=== PATIENT | male | born 1940 | race Hispanic/Latino ===

== ENCOUNTER 2018-09-13 18:53 | Observation (INO) | payer OTHER ==
--- OUTSIDE RECORDS SUMMARY | 2018-09-13 18:55 | XMS REPORT ---
:1940 [facility] Address [address] [place] [address] Dr. Hernandez. [address] [place] [id number] Care Team Providers Name Role Phone Unavailable Unavailable Unavailable Problems This patient has no known problems. Allergies, Adverse Reactions, Alerts This patient has no known allergies or adverse reactions. Medications This patient has no known medications.
--- OUTSIDE RECORDS SUMMARY | 2018-09-13 18:55 | XMS REPORT | Continuity of Care Document ---
:1940 Author Organization Interface Problems Problem Status Onset Date Classification Date Comments Source Reported Medications Medication Details Route Status Patient Ordering Order Source Instructions Provider Date Allergies, Adverse Reactions, Alerts Substance Category Reaction Severity Reaction Status Date Comments Source type Reported Immunizations Immunization Date Given Site Status Last Updated Comments Source Results Order Results Value Reference Date Interpretation Comments Source Name Range Vital Signs Vital Sign Value Date Comments Source Encounters Location Location Encounter Encounter Reason Attending ADM DC Status Source Details Type Number For Provider Date Date Visit Outpatient [id number] [id number] 05/31 Active [facility] KRE Noel Outpatient [id number] ANYA 06/07 Active [facility] Stanley Outpatient [id number] [id number] 06/28 Active [facility] Noel Outpatient [id number] ANYA 07/06 Active [facility] Noel Outpatient [id number] ANYA 08/03 Active [facility] Outpatient [id number] ANYA 11/30 Active [facility] Procedures Procedure Code Date Perfomer Comments Source
[2018-09-13 20:47] LABS: Absolute Lymphocytes (CBC) 1.9 K/uL (0.7-4.9); Absolute Monocytes 1.5 K/uL (0.1-1.3); Absolute Neutrophil 14.8 K/uL (1.8-8.0); Basophils % 0.3 % (0-1.3); Eosinophils % 0.4 % (0-4.4); Hematocrit 39.4 % (39.6-49.0); Lymphocytes % 10.6 % (15.3-44.8); MPV 7.9 fL (7.6-11.3); RBC Red Blood Cell Count 4.28 M/uL (4.33-5.43)
[2018-09-13 20:52] LABS: Protime INR 1.13
[2018-09-13 21:29] LABS: Albumin 3.2 g/dL (3.4-5.0); Bilirubin Direct 0.1 mg/dL (0-0.2); Bilirubin Total 0.4 mg/dL (0.2-1.0); Magnesium 2.3 mg/dL (1.8-2.4); Protein, Total 6.4 g/dL (6.4-8.2); Troponin (Emerg Dept Use Only) 0.02 ng/mL (0.0-0.045)
[2018-09-13 21:30] LABS: Thyroid Stimulating Hormone 4.69 uIU/mL (0.360-3.740)
--- NOTE | 2018-09-13 22:06 | RAD REPORT ---
EXAM DESCRIPTION: RAD - Chest Single View - 09/13/2018 9:11 pm CLINICAL HISTORY: Cough, shortness of breath COMPARISON: January 2017 TECHNIQUE: AP portable chest image was obtained 8 hours . FINDINGS: Prominent COPD changes are present. No large consolidations seen. Right lung base markings are slightly increased over comparison. Significant failure or volume overload are not suspected. He art and vasculature are normal. No measurable pleural effusion and no pneumothorax. No acute bony abn ormality seen. No acute aortic findings suspected. IMPRESSION: Suspected early right lung base pneumonia superimposed on advanced COPD.
[2018-09-13] MEDS ORDERED: Levofloxacin500mg IV 500 MG/100 ML BAG IV ONE (23:14)
--- NOTE | 2018-09-13 23:14 | EDPHYS ---
Physician Documentation [facility] Name: Jeancarlos Stiles Age: 78 yrs Sex: Male : 1940 Arrival Date: 09/13/2018 Time: 19:00 Bed 7 Private MD: ED Physician Lee Lawrence HPI: 09/13 20:12 This 78 yrs old Male presents to ER via EMS with complaints of ams, combative ric on arrival to [place]. 20:12 hx of behavioral disturbance. Onset: The symptoms/episode began/occurred just prior to ric arrival. Possible causes: unknown. Associated signs and symptoms: The patient has no apparent associated signs or symptoms. Patient's baseline: Neuro: alert but confused. Severity of symptoms: At their worst the symptoms were mild in the emergency department the symptoms have improved mildly. Historical: - Allergies: 19:27 No Known Allergies; bp - Home Meds: 19:27 albuterol sulfate 2.5 mg /3 mL (0.083 %) Nebulizer nebu 3 mL 4 times per day [Active]; bp citalopram 20 mg tab 1 tab once daily [Active]; levothyroxine 50 mcg tab 1 tab once daily [Active]; losartan 50 mg oral tab 1 tab once daily [Active]; memantine 5 mg oral tab 1 tabs 2 times per day [Active]; prednisone 10 mg Oral tab once daily [Active]; trazodone 50 mg Oral tab 1 tab daily [Active]; - PMHx: 19:27 Dementia; Hypothyroidism; Anxiety; Emphysema; bp - Immunization history:: Adult Immunizations up to date. - Social history:: Smoking status: Patient/guardian denies using tobacco. - Ebola Screening: : Patient negative for fever greater than or equal to 101.5 degrees Fahrenheit, and additional compatible Ebola Virus Disease symptoms Patient denies exposure to infectious person Patient denies travel to an Ebola-affected area in the 21 days before illness onset No symptoms or risks identified at this time. - Family history:: not pertinent. ROS: 20:12 Constitutional: Negative for fever, chills, and weight loss, Eyes: Negative for injury, ric pain, redness, and discharge, ENT: Negative for injury, pain, and discharge, Neck: Negative for injury, pain, and swelling, Cardiovascular: Negative for chest pain, palpitations, and edema, Respiratory: Negative for shortness of breath, cough, wheezing, and pleuritic chest pain, Abdomen/GI: Negative for abdominal pain, nausea, vomiting, diarrhea, and constipation, Back: Negative for injury and pain, : Negative for injury, bleeding, discharge, and swelling, MS/Extremity: Negative for injury and deformity, Skin: Negative for injury, rash, and discoloration, Allergy/Immunology: Negative for hives, rash, and allergies, Endocrine: Negative for neck swelling, polydipsia, polyuria, polyphagia, and marked weight changes. 20:12 Neuro: Positive for altered mental status. 20:12 Psych: Positive for not talking, does not answer questions. Exam: 20:12 Constitutional: This is a well developed, well nourished patient who is awake, alert, ric and in no acute distress. Head/Face: Normocephalic, atraumatic. Eyes: Pupils equal round and reactive to light, extra-ocular motions intact. Lids and lashes normal. Conjunctiva and sclera are non-icteric and not injected. Cornea within normal limits. Periorbital areas with no swelling, redness, or edema. ENT: Nares patent. No nasal discharge, no septal abnormalities noted. Tympanic membranes are normal and external auditory canals are clear. Oropharynx with no redness, swelling, or masses, exudates, or evidence of obstruction, uvula midline. Mucous membranes moist. Neck: Trachea midline, no thyromegaly or masses palpated, and no cervical lymphadenopathy. Supple, full range of motion without nuchal rigidity, or vertebral point tenderness. No Meningismus. Chest/axilla: Normal chest wall appearance and motion. Nontender with no deformity. No lesions are appreciated. Cardiovascular: Regular rate and rhythm with a normal S1 and S2. No gallops, murmurs, or rubs. Normal PMI, no JVD. No pulse deficits. Respiratory: Lungs have equal breath sounds bilaterally, clear to auscultation and percussion. No rales, rhonchi or wheezes noted. No increased work of breathing, no retractions or nasal flaring. Abdomen/GI: Soft, non-tender, with normal bowel sounds. No distension or tympany. No guarding or rebound. No evidence of tenderness throughout. Back: No spinal tenderness. No costovertebral tenderness. Full range of motion. Male : Normal genitalia with no discharge or lesions. Skin: Warm, dry with normal turgor. Normal color with no rashes, no lesions, and no evidence of cellulitis. MS/ Extremity: Pulses equal, no cyanosis. Neurovascular intact. Full, normal range of motion. 20:12 Neuro: Orientation: unable to test, Mentation: no acute changes, Memory: unable to test, Cranial nerves: no acute changes, Cerebellar function: unable to test, Gait: not tested. seizure activity, is not displayed by the patient. Vital Signs: 19:27 BP 127 / 68; Pulse 85; Resp 18; Temp 98; Pulse Ox 100% ; Weight 54.43 kg; bp 20:50 BP 134 / 63; Pulse 85; Resp 18; Pulse Ox 100% ; tl2 22:16 BP 152 / 82; Pulse 82; Resp 18; Pulse Ox 99% on 2 lpm NC; tl2 09/14 00:37 BP 137 / 82; Pulse 91; Resp 20; Pulse Ox 92% on 2 lpm NC; tl2 01:30 BP 135 / 94; Pulse 88; Resp 20; Pulse Ox 99% on 2 lpm NC; tl2 MDM: 09/13 19:26 Patient medically screened. [facility] 20:16 Data reviewed: vital signs, nurses notes, lab test result(s), EKG, radiologic studies, ric plain films. 09/13 20:10 Order name: Basic Metabolic Panel; Complete Time: 22:44 [facility] 09/13 20:10 Order name: CBC with Diff; Complete Time: 22:44 [facility] 09/13 20:10 Order name: LFT's; Complete Time: 22:44 [facility] 09/13 20:10 Order name: Magnesium; Complete Time: 22:44 [facility] 09/13 20:10 Order name: NT PRO-BNP; Complete Time: 22:44 [facility] 09/13 20:10 Order name: PT-INR; Complete Time: 22:44 [facility] 09/13 20:10 Order name: Troponin (emerg Dept Use Only); Complete Time: 22:44 [facility] 09/13 20:10 Order name: TSH; Complete Time: 22:44 [facility] 09/13 21:31 Order name: T4 Free; Complete Time: 22:44 EDMS 09/13 22:45 Order name: Blood Culture Adult (2) [facility] 09/13 22:45 Order name: Procalcitonin [facility] 09/13 23:43 Order name: CBC with Automated Diff EDME 09/13 23:43 Order name: CBC with Automated Diff EDMS 09/13 23:43 Order name: Comprehensive Metabolic Panel [facility] 09/13 20:10 Order name: XRAY Chest (1 view); Complete Time: 22:44 [facility] 09/13 20:10 Order name: EKG; Complete Time: 20:11 [facility] 09/13 20:10 Order name: Cardiac monitoring; Complete Time: 20:34 [facility] 09/13 23:42 Order name: Heart Healthy EDMS 09/13 23:43 Order name: Comprehensive Metabolic Panel EDMS 09/13 23:43 Order name: Lipid Profile EDMS 09/13 23:43 Order name: Lipid Profile EDMS 09/13 23:43 Order name: Magnesium EDMS 09/13 23:43 Order name: Magnesium EDMS 09/13 23:43 Order name: Phosphorus EDMS 09/13 23:43 Order name: Phosphorus EDMS 09/13 20:10 Order name: EKG - Nurse/Tech; Complete Time: 20:34 [facility] 09/13 20:10 Order name: IV Saline Lock; Complete Time: 20:34 [facility] 09/13 20:10 Order name: Labs collected and sent; Complete Time: 20:34 [facility] 09/13 20:10 Order name: O2 Per Protocol; Complete Time: 20:35 [facility] 09/13 20:10 Order name: O2 Sat Monitoring; Complete Time: 20:35 [facility] 09/13 20:10 Order name: Urine Dipstick-Ancillary (obtain specimen); Complete Time: 01:36 [facility] Administered Medications: 23:28 Drug: traZODONE 50 mg Route: PO; tl2 09/14 01:07 Follow up: Response: No adverse reaction; Marked relief of symptoms tl2 09/13 23:28 Drug: Ativan 1 mg Route: IVP; Site: left wrist; tl2 09/14 01:07 Follow up: Response: No adverse reaction; Marked relief of symptoms tl2 02 23:45 Drug: Geodon 20 mg Route: IM; Site: right deltoid; tl2 09/14 01:09 Follow up: Response: No adverse reaction; Marked relief of symptoms tl2 00:03 Drug: levofloxacin 500 mg Volume: 100 ml; Route: IVPB; Infused Over: 60 mins; Site: tl2 left wrist; 01:07 Follow up: IV Status: Completed infusion; IV Intake: 100ml tl2 01:08 Drug: Zosyn 3.375 grams Route: IVPB; Infused Over: 60 mins; Site: left wrist; tl2 07:01 Follow up: Response: No adverse reaction; IV Status: Completed infusion ea Disposition: 09/13/18 23:13 Hospitalization ordered by Arcelia Kirk for Inpatient Admission. Preliminary diagnosis are Pneumonia due to other specified bacteria - rll, Elevated white blood cell count, Chronic obstructive pulmonary disease, unspecified, Dementia in other diseases classified elsewhere. - Bed requested for Telemetry/MedSurg (Inpatient). - Status is Inpatient Admission. sv - Condition is Fair. - Problem is new. - Symptoms have improved. UTI on Admission? No Signatures: Dispatcher [employer] EDNaomi Cerna RN Nallely Merino RN RN sv Anderson, Corey, MD MD cha Chretien, Felicia, RN RN fc Solis, Maria ms Knox, Taylor, RN RN [facility] Efren Allen RN RN bp Antunez, Elena RN ea Corrections: (The following items were deleted from the chart) 00:47 09/13 23:13 Hospitalization Ordered by Arcelia Kirk MD for Inpatient Admission. fc Preliminary diagnosis is Pneumonia due to other specified bacteria - rll; Elevated white blood cell count; Chronic obstructive pulmonary disease, unspecified; Dementia in other diseases classified elsewhere. Bed requested for Telemetry/MedSurg (Inpatient). Status is Inpatient Admission. Condition is Fair. Problem is new. Symptoms have improved. UTI on Admission? No. ric 09/14 01:32 00:47 09/13/2018 23:13 Hospitalization Ordered by Arcelia Kirk MD for Inpatient ms Admission. Preliminary diagnosis is Pneumonia due to other specified bacteria - rll; Elevated white blood cell count; Chronic obstructive pulmonary disease, unspecified; Dementia in other diseases classified elsewhere. Bed requested for Telemetry/MedSurg (Inpatient). Status is Inpatient Admission. Condition is Fair. Problem is new. Symptoms have improved. UTI on Admission? No. fc 06:47 01:32 09/13/2018 23:13 Hospitalization Ordered by Arcelia Kirk MD for Inpatient kl Admission. Preliminary diagnosis is Pneumonia due to other specified bacteria - rll; Elevated white blood cell count; Chronic obstructive pulmonary disease, unspecified; Dementia in other diseases classified elsewhere. Bed requested for [facility] ER HOLD. Status is Inpatient Admission. Condition is Fair. Problem is new. Symptoms have improved. UTI on Admission? No. ms 07:54 06:47 09/13/2018 23:13 Hospitalization Ordered by Arcelia Kirk MD for Inpatient sv Admission. Preliminary diagnosis is Pneumonia due to other specified bacteria - rll; Elevated white blood cell count; Chronic obstructive pulmonary disease, unspecified; Dementia in other diseases classified elsewhere. Bed requested for Telemetry/MedSurg (Inpatient). Status is Inpatient Admission. Condition is Fair. Problem is new. Symptoms have improved. UTI on Admission? No. kl
--- NOTE | 2018-09-13 23:14 | ER ---
Nurse's Notes [facility] Name: Jeancarlos Stiles Age: 78 yrs Sex: Male : 1940 Arrival Date: 09/13/2018 Time: 19:00 Bed 7 Private MD: Diagnosis: Pneumonia due to other specified bacteria-rll;Elevated white blood cell count;Chronic obstructive pulmonary disease, unspecified;Dementia in other diseases classified elsewhere Presentation: 09/13 19:13 Presenting complaint: EMS states: HE WAS ADMITTED TO [facility] 3 HOURS AGO AND BECAME bp COMBATIVE WITH STAFF. THE DOCTOR WANTED HIM BROUGHT TO THE ER FOR EVAL. HE'S [place] SPEAKING AND THEY HAVE NO [place] SPEAKING PERSONNEL. Transition of care: patient was received from another setting of care ([facility]. Onset of symptoms is unknown. Risk Assessment: Do you want to hurt yourself or someone else? Unable to obtain. Initial Sepsis Screen: Does the patient meet any 2 criteria? No. Patient's initial sepsis screen is negative. Does the patient have a suspected source of infection? No. Patient's initial sepsis screen is negative. Care prior to arrival: None. 19:13 Method Of Arrival: EMS: [facility] bp 19:13 Acuity: [place]UG[place] 3 bp Triage Assessment: 19:27 General: Appears in no apparent distress. comfortable, slender, Behavior is calm, bp appropriate for age, uncooperative. Pain: Denies pain. Historical: - Allergies: 19:27 No Known Allergies; bp - Home Meds: 19:27 albuterol sulfate 2.5 mg /3 mL (0.083 %) Nebulizer nebu 3 mL 4 times per day [Active]; bp citalopram 20 mg tab 1 tab once daily [Active]; levothyroxine 50 mcg tab 1 tab once daily [Active]; losartan 50 mg oral tab 1 tab once daily [Active]; memantine 5 mg oral tab 1 tabs 2 times per day [Active]; prednisone 10 mg Oral tab once daily [Active]; trazodone 50 mg Oral tab 1 tab daily [Active]; - PMHx: 19:27 Dementia; Hypothyroidism; Anxiety; Emphysema; bp - Immunization history:: Adult Immunizations up to date. - Social history:: Smoking status: Patient/guardian denies using tobacco. - Ebola Screening: : Patient negative for fever greater than or equal to 101.5 degrees Fahrenheit, and additional compatible Ebola Virus Disease symptoms Patient denies exposure to infectious person Patient denies travel to an Ebola-affected area in the 21 days before illness onset No symptoms or risks identified at this time. - Family history:: not pertinent. Screenin:57 Abuse screen: Denies threats or abuse. Nutritional screening: No deficits noted. ea Tuberculosis screening: No symptoms or risk factors identified. Fall Risk Fall in past 12 months (25 points). Secondary diagnosis (15 points) dementia. Assessment: 19:00 General: Appears in no apparent distress. Behavior is cooperative. Pain: Denies pain. ea Neuro: Level of Consciousness is awake, alert, Oriented to person. Cardiovascular: Patient's skin is warm and dry. Respiratory: Airway is patent Respiratory effort is even, unlabored, Respiratory pattern is regular, symmetrical, Breath sounds are clear bilaterally. GI: Bowel sounds present X 4 quads. Derm: Skin is pink, warm \T\ dry. Musculoskeletal: Circulation, motion, and sensation intact. 20:51 Reassessment: Patient appears in no apparent distress at this time. pt is resting at tl2 this time, is cooperative. Family has left and wont be back for the night. 23:20 Reassessment: pt becoming increasingly agitated and trying to get out of bed. MD [email or web address] notified, new orders see MAR. Vital Signs: 19:27 BP 127 / 68; Pulse 85; Resp 18; Temp 98; Pulse Ox 100% ; Weight 54.43 kg; bp 20:50 BP 134 / 63; Pulse 85; Resp 18; Pulse Ox 100% ; tl2 22:16 BP 152 / 82; Pulse 82; Resp 18; Pulse Ox 99% on 2 lpm NC; tl2 09/14 00:37 BP 137 / 82; Pulse 91; Resp 20; Pulse Ox 92% on 2 lpm NC; tl2 01:30 BP 135 / 94; Pulse 88; Resp 20; Pulse Ox 99% on 2 lpm NC; tl2 ED Course: 09/13 19:00 Patient arrived in ED. iw 19:01 Efren Allen, RN is Primary Nurse. bp 19:15 Triage completed. bp 19:26 Lee Lawrence MD is Attending Physician. ric 19:29 Arm band placed on. bp 19:58 Patient has correct armband on for positive identification. Call light in reach. Side ea rails up X2. 20:35 Inserted saline lock: 22 gauge in left wrist, using aseptic technique. Blood collected. tl2 21:10 XRAY Chest (1 view) In Process Unspecified. EDMS 23:11 Arcelia Kirk MD is Hospitalizing Provider. [facility] 09/14 02:33 No provider procedures requiring assistance completed. Pt pulled out IV, catheter tip ea intact, bleeding controlled, pressure dressing applied. pt tolerated well. 02:33 Inserted saline lock: 22 gauge in right forearm, using aseptic technique. ea 07:38 Note: ATTEMPTED TO GET PT FOR CT 738. PER NURSE PT IS UNABLE TO HOLD STILL FOR EXAM.. [email or web address] Administered Medications: 09/13 23:28 Drug: traZODONE 50 mg Route: PO; tl2 09/14 01:07 Follow up: Response: No adverse reaction; Marked relief of symptoms tl2 09/13 23:28 Drug: Ativan 1 mg Route: IVP; Site: left wrist; tl2 09/14 01:07 Follow up: Response: No adverse reaction; Marked relief of symptoms 2 09/13 23:45 Drug: Geodon 20 mg Route: IM; Site: right deltoid; tl2 09/14 01:09 Follow up: Response: No adverse reaction; Marked relief of symptoms tl2 00:03 Drug: levofloxacin 500 mg Volume: 100 ml; Route: IVPB; Infused Over: 60 mins; Site: tl2 left wrist; 01:07 Follow up: IV Status: Completed infusion; IV Intake: 100ml tl2 01:08 Drug: Zosyn 3.375 grams Route: IVPB; Infused Over: 60 mins; Site: left wrist; tl2 07:01 Follow up: Response: No adverse reaction; IV Status: Completed infusion ea Intake: 01:07 IV: 100ml; Total: 100ml. tl2 Outcome: 09/13 23:13 Decision to Hospitalize by Provider. [facility] 09/14 07:46 Admitted to Med/surg accompanied by tech, via stretcher, room 413, with chart, Report sv called to Alethea EDDY Condition: stable Instructed on the need for admit. 07:54 Patient left the ED. sv Signatures: Dispatcher [facility] Nallely Wan RN Lee Garcia MD MD cha Williams, Irene, NUNU EDDY iw Kaylin Cam RN RN tl2 Soni Avila, RN Efren Carty ea, RN RN bp Garcia, Jessica [email or web address] Corrections: (The following items were deleted from the chart) 00:38 09/13 22:16 BP 152 / 82; Pulse 82bpm; Resp 18bpm; Pulse Ox 99% RA; tl2 tl2
[2018-09-13] MEDS ORDERED: LORazepam 2 MG/ML VIAL ONE (23:19)
[2018-09-13] MEDS ORDERED: TRAZODONE 50 MG TABLET ONE (23:25)
[2018-09-13] MEDS ORDERED: ALBUTEROL 2.5 MG/3 ML NEB SOL NEB PRN ×2 (23:36)
[2018-09-13] MEDS ORDERED: ACETAMINOPHEN 500 MG TAB PO PRN (23:36)
[2018-09-13] MEDS ORDERED: ONDANSETRON 4 MG/2 ML VIAL IV PRN (23:36)
[2018-09-13] MEDS ORDERED: WATER FOR INJ,STERILE 10 ML ONE (23:42)
[2018-09-13] MEDS ORDERED: ZIPRASIDONE MESYLA 20 MG/VIAL IM ONE (23:42)
[2018-09-14] MEDS ORDERED: PIPER/TAZO/NS 3.375gm 3.375 GM/100 ML BAG ONE ×2 (01:16→07:36)
[2018-09-14] MEDS ORDERED: ZIPRASIDONE MESYLA 20 MG/VIAL IM ONE ×3 (02:23→20:01)
[2018-09-14] MEDS ORDERED: WATER FOR INJ,STERILE 10 ML IM PRN ×2 (02:23→20:01)
[2018-09-14] MEDS: IPRATROPIUM BROM 0.5MG/2.5ML NEB SCH ×4 (02:42→20:23)
[2018-09-14] MEDS ORDERED: IPRATROPIUM BROM 0.5MG/2.5ML ONE ×2 (02:51→07:56)
[2018-09-14] MEDS ORDERED: METHYLPREDNISOLONE 40 MG INJ ONE (03:21)
--- NOTE | 2018-09-14 05:06 | P.HP ---
Certification for Inpatient Patient admitted to: Inpatient With expected LOS: >2 Midnights Patient will require the following post-hospital care: None Practitioner: I am a practitioner with admitting privileges, knowledge of patient current condition, hospital course, and medical plan of care. Services: Services provided to patient in accordance with Admission requirements found in Title 42 Section 412.3 of the Code of Federal Regulations Patient History Date of Service: 09/14/18 Reason for admission: Altered mental status History of Present Illness: Patient is an 78-year-old gentleman who was admitted to [facility] for the 1st time today. When patient arrived he was combative. They were not able to manage him at the nursing facility. He has apparently [place]ian-speaking only. He was brought here to our hospital and his workup revealed leukocytosis with a right lower lobe pneumonia and a COPD exacerbation. We were not able to get a urinalysis. This will be checked later today. We may need to get CT or MRI of the brain to further evaluate his neurologic status. At this time, he was heavily sedated and is not answering any of my questions. We will admit him for inpatient admission for altered mental status with a pneumonia and toxic encephalopathy. Allergies No Known Allergies Allergy (Unverified 09/13/18 23:53) - Past Medical/Surgical History Past Medical History: Unable to obtain Past Surgical History: Unable to obtain - Family History Father Family History: Reviewed- Non-Contributory - Social History Smoking Status: Unknown if ever smoked Review of Systems is unable to be obtained Physical Examination - Vital Signs Temperature: 99 F Blood Pressure: 130/51 Pulse: 72 Respirations: 18 Pulse Ox (%): 99 - Physical Exam General: Unresponsive HEENT: Atraumatic, Normocephalic Neck: Supple, 2+ carotid pulse no bruit, JVD not distended, No Thyromegaly Respiratory: Diminished, Rhonchi/gurgles Cardiovascular: Regular rate/rhythm, Normal S1 S2, Systolic murmur Gastrointestinal: Normal bowel sounds, Soft and benign, Non-distended, No tenderness Musculoskeletal: No clubbing, No swelling Integumentary: No rashes Neurological: Other (Unable to examine because of altered mentation) - Studies Laboratory Data (last 24 hrs) 09/13/18 20:38: PT 13.3 H, INR 1.13 09/13/18 20:38: WBC 18.3 H, Hgb 12.7 L, Hct 39.4 L, Plt Count 280 09/13/18 20:38: Sodium 145, Potassium 4.0, BUN 19 H, Creatinine 0.86, Glucose 83 , Magnesium 2.3, Total Bilirubin 0.4, AST 16, ALT 23, Alkaline Phosphatase 223 H Assessment & Plan - Problems (Diagnosis) (1) Altered mental status Current Visit: Yes Status: Acute (2) Pneumonia Current Visit: Yes Status: Acute (3) Leukocytosis Current Visit: Yes Status: Acute (4) Dehydration Current Visit: Yes Status: Acute - Plan Plan: 1. IV hydration and IV antibiotics 2. Neuro checks 3. Medication for agitation as needed 4. MRI of the brain to further assess neurologic status if it does not improve 5. Ativan and Geodon as needed 6. Physical therapy evaluation once mentation improved 7. Monitor electrolytes and leukocytosis 8. GI and DVT prophylaxis Discharge Plan: Snf Plan to discharge in: Greater than 2 days - Advance Directives Does patient have a Living Will: No Does patient have a Durable POA for Healthcare: Yes - Code Status/Comfort Care Code Status Assessed: Yes Code Status: Full Code Critical Care: No Time Spent Managing PTS Care (In Minutes): 50
[2018-09-14] MEDS: METHYLPREDNISOLONE 125 MG INJ IV SCH ×4 (06:00→17:07)
[2018-09-14] MEDS: PIPER/TAZO/NS 3.375gm 3.375 GM/100 ML BAG IVPB SCH ×3 (06:00→16:47)
[2018-09-14 07:06] LABS: Absolute Lymphocytes (CBC) 0.4 K/uL (0.7-4.9); Absolute Monocytes 1.7 K/uL (0.1-1.3); Absolute Neutrophil 9.3 K/uL (1.8-8.0); Hematocrit 40.5 % (39.6-49.0); Lymphocytes % 3.2 % (15.3-44.8); MPV 8.3 fL (7.6-11.3); Monocytes % 14.6 % (3.3-12.3); RBC Red Blood Cell Count 4.46 M/uL (4.33-5.43)
[2018-09-14 07:25] LABS: ALT/SGPT 22 U/L (12-78); AST/SGOT 16 U/L (15-37); Albumin 3.2 g/dL (3.4-5.0); Alkaline Phosphatase 232 U/L (45-117); BUN Blood Urea Nitrogen 17 mg/dL (7-18); Bicarbonate 28 mmol/L (21-32); Bilirubin Total 0.6 mg/dL (0.2-1.0); Glucose Level 112 mg/dL (74-106); HDL Cholesterol 63 mg/dL (40-60); LDL Cholesterol, Calculated 133 (<130); Magnesium 2.3 mg/dL (1.8-2.4); Phosphorus 2.6 mg/dL (2.5-4.9); Potassium 4.2 mmol/L (3.5-5.1); Protein, Total 6.3 g/dL (6.4-8.2); Sodium Level 143 mmol/L (136-145)
[2018-09-14 09:04] LABS: Blood Morphology Comment NOT SEEN (NOT SEEN); Platelet Estimate ADEQ
[2018-09-14] MEDS: ENOXAPARIN 40 MG/0.4 ML SQ SCH (09:25)
[2018-09-14] MEDS: RISPERIDONE 0.25 MG TABLET PO SCH ×2 (09:25→20:16)
[2018-09-14] MEDS: NA CHLORIDE 0.9% 1,000 ML IV SCH ×2 (09:31→19:32)
--- NOTE | 2018-09-14 09:56 | EKG ---
Test Date: 2018-09-13 Test Time: 20:26:28 Organizational Effectiveness Director: NICOLE MEASUREMENT RESULTS: Intervals: Rate: 82 NH: 114 QRSD: 112 QT: 436 QTc: 509 [place]: P: 65 NH: 114 QRS: -4 T: 91 INTERPRETIVE STATEMENTS: Sinus rhythm with occasional premature supra ventricular complexes Septal infarct, age undetermined Prolonged QT Abnormal ECG Compared to ECG 09/04/2014 06:26:59 Atrial premature complex(es) now present Prolonged QT interval now present Myocardial infarct finding still present Electronically Signed On 09-14-18 09:55:34 GREASE PRESS HELPER by Kev Cano
[2018-09-14] MEDS ORDERED: HALOPERIDOL LACT 5 MG/ML INJ IM PRN (11:48)
[2018-09-15] MEDS: PIPER/TAZO/NS 3.375gm 3.375 GM/100 ML BAG IVPB SCH ×3 (00:10→16:49)
[2018-09-15] MEDS: METHYLPREDNISOLONE 125 MG INJ IV SCH ×2 (00:11→06:03)
[2018-09-15] MEDS: IPRATROPIUM BROM 0.5MG/2.5ML NEB SCH ×3 (01:50→13:30)
[2018-09-15] MEDS ORDERED: LORazepam 2 MG/ML VIAL IV ONE (02:59)
[2018-09-15] MEDS: RISPERIDONE 0.25 MG TABLET PO SCH ×2 (07:23→08:27)
[2018-09-15] MEDS: ENOXAPARIN 40 MG/0.4 ML SQ SCH (08:26)
[2018-09-15] MEDS ORDERED: predniSONE 20 MG TAB PO SCH (09:00)
[2018-09-15] MEDS ORDERED: TRAZODONE 50 MG TABLET PO PRN (13:24)
[2018-09-15] MEDS: NA CHLORIDE 0.9% 1,000 ML IV SCH (15:45)
--- NOTE | 2018-09-15 16:36 | P.SSS ---
Patient History Date of Service: 09/15/18 Reason for admission: Altered mental status History of Present Illness: Patient is an 78-year-old gentleman who was admitted to [facility] for the 1st time today. When patient arrived he was combative. They were not able to manage him at the nursing facility. He has apparently Gambian-speaking only. He was brought here to our hospital and his workup revealed leukocytosis with a right lower lobe pneumonia and a COPD exacerbation. We were not able to get a urinalysis. This will be checked later today. We may need to get CT or MRI of the brain to further evaluate his neurologic status. At this time, he was heavily sedated and is not answering any of my questions. We will admit him for inpatient admission for altered mental status with a pneumonia and toxic encephalopathy Allergies No Known Allergies Allergy (Unverified 09/13/18 23:53) Home Medications: Albuterol Neb [Proventil 0.083% Neb Soln] 2.5 mg IH Q6H PRN 09/14/18 Citalopram [Celexa*] 20 mg PO DAILY 09/14/18 Levothyroxine [Synthroid*] 50 mcg PO [id number] 09/14/18 Losartan Potassium 50 mg PO DAILY 09/14/18 Memantine HCl 5 mg PO BID 09/14/18 Trazodone [Desyrel*] 50 mg PO BEDTIME PRN 09/14/18 predniSONE [Deltasone*] 10 mg PO DAILY 09/14/18 Azithromycin [Zithromax] 500 mg PO DAILY #14 tablet 09/15/18 - Social History Smoking Status: Unknown if ever smoked Review of Systems 10-point ROS is otherwise unremarkable Physical Examination - Vital Signs Temperature: 97.7 F Blood Pressure: 156/88 Pulse: 102 Respirations: 20 Pulse Ox (%): 97 - Physical Exam General: Alert, In no apparent distress HEENT: Atraumatic, PERRLA, Mucous membr. moist/pink, EOMI, Sclerae nonicteric Neck: Supple, 2+ carotid pulse no bruit, No LAD, Without JVD or thyroid abnormality Respiratory: Clear to auscultation bilaterally, Normal air movement Cardiovascular: Regular rate/rhythm, Normal S1 S2 Gastrointestinal: Normal bowel sounds, No tenderness Musculoskeletal: No tenderness Integumentary: No rashes Neurological: Normal gait, Normal speech, Normal strength at 5/5 x4 extr, Normal tone, Normal affect Lymphatics: No axilla or inguinal lymphadenopathy - Studies Microbiology Data (last 24 hrs): 09/13/18 23:00 Blood - Blood Anaerobic Blood Culture - Final - Diagnosis (Problem(s)) (1) Pneumonia Onset Date: 09/14/18 Current Visit: Yes Status: Acute (2) Dementia Current Visit: Yes Status: Chronic Qualifiers: Dementia type: Alzheimer's disease Alzheimer's disease onset: late-onset Dementia behavioral disturbance: with behavioral disturbance Qualified Code(s) : G30.1 - Alzheimer's disease with late onset; F02.81 - Dementia in other diseases classified elsewhere with behavioral disturbance (3) Altered mental status Onset Date: 09/14/18 Current Visit: Yes Status: Chronic Qualifiers: Altered mental status type: unspecified Qualified Code(s): R41.82 - Altered mental status, unspecified (4) Dehydration Onset Date: 09/14/18 Current Visit: Yes Status: Acute Treatment Summary: Overall during the hospital stay patient remained stable Patient was initially admitted to the hospital for altered mental status most likely secondary to pneumonia. Patient however does have dementia as underlying condition and his altered mental status was most likely secondary to his chronic dementia. Patient's white count along with pro calcitonin and chest x-ray were within normal limits. Antibiotics thus were stopped. Patient was then referred over to a psych facility for transfer. [facility] Patient then was transferred over to medical unit for further care. Patient was given a prescription for oral antibiotics in case he develops fever elevated white count or pro calcitonin at the facility. - Disposition Disposition: ROUTINE DISCHARGE Condition: GOOD Patient Discharge Instructions: Please f.u with PCP and Environmental Department Manager in 1 to 2 week post discharge. New medication. Zithromax Diet: Regular Activity: Ad silvia
[2018-09-15] MEDS ORDERED: MEMANTINE HCL 10 MG TABLET PO SCH (21:00)
[2018-09-16] MEDS ORDERED: LEVOTHYROXINE SOD 0.05 MG TABLET PO SCH (06:00)
[2018-09-16] MEDS ORDERED: LOSARTAN POTASSIUM 50 MG TABLET PO SCH (09:00)
[2018-09-16] MEDS ORDERED: predniSONE 10 MG TAB PO SCH (09:00)
[2018-09-16] MEDS ORDERED: CITALOPRAM 10 MG TABLET PO SCH (09:00)
== END 2018-09-15 17:47 ==
LOC: ER 18:53 → ERHOLD 23:51 → INTOOBSV 23:51 → 4TH 09-14 07:48
PROVIDERS: ADMIT Hospitalist; ATTEND Hospitalist
DX: J44.0 Chronic obstructive pulmonary disease with (acute) lower respiratory infection (principal); J18.9 Pneumonia, unspecified organism; J44.1 Chronic obstructive pulmonary disease with (acute) exacerbation; G30.1 Alzheimer's disease with late onset; F02.81 Dementia in other diseases classified elsewhere, unspecified severity, with behavioral disturbance; E86.0 Dehydration
CPT/HCPCS: 36415; 71045; 80048; 80053; 80061; 80076; 83735 ×2; 83880; 84100; 84145 ×2; 84439; 84443; 84484; 85025 ×2; 85610; 87040 ×2; 93005; 94760 ×3; 96365; 96366; 96367; 96372; 96375; 99285; G0378 ×2; J1630; J1650 ×2; J2543 ×4; J2920; J2930 ×4; J3486 ×3; J7030; J7512

== ENCOUNTER 2018-11-08 20:31 | Inpatient (IN) | payer OTHER ==
--- OUTSIDE RECORDS SUMMARY | 2018-11-08 20:33 | XMS REPORT | Continuity of Care Document ---
[...] Number For Provider Date Date Visit Outpatient [id number] ANYA 05/31 Active [facility] KRE Egan Outpatient [id number] ANYA 06/07 Active [facility] Stanley Outpatient [id number] ANYA 06/28 Active [facility] Egan Outpatient [id number] ANYA 07/06 Active [facility] Egan Outpatient [id number] ANYA 08/03 Active [facility] Outpatient [id number] ANYA 11/30 Active [facility] Procedures Procedure Code Date Perfomer Comments Source
--- OUTSIDE RECORDS SUMMARY | 2018-11-08 20:33 | XMS REPORT ---
:1940 [facility] Address [address] [place] [address] Dr. Hernandez[address] [place] [id number] Care Team Providers Name Role Phone Unavailable Unavailable Unavailable Problems This patient has no known problems. Allergies, Adverse Reactions, Alerts This patient has no known allergies or adverse reactions. Medications This patient has no known medications.
--- NOTE | 2018-11-08 21:00 | EDPHYS ---
Physician Documentation [facility] Name: Jeancarlos Stiles Age: 78 yrs Sex: Male : 1940 Arrival Date: 11/08/2018 Time: 20:32 Bed 4 Private MD: ED Physician Lee Lawrence HPI: 11/08 20:43 This 78 yrs old Male presents to ER via Unassigned with complaints of ams, ric unresponsive. 20:43 from care home. The patient presents with decreased mental status, decreased ric responsiveness, trouble concentrating. Onset: The symptoms/episode began/occurred 1 day(s) ago. Possible causes: sepsis. Associated signs and symptoms: Pertinent positives: confusion, shortness of breath. Current symptoms: In the emergency department the patient's symptoms are unchanged from the initial presentation, despite home interventions, despite EMS interventions. Patient's baseline: Neuro: alert but confused, Motor: no deficits, Ambulation: unable to walk, Speech: unknown. Severity of symptoms: At their worst the symptoms were moderate severe unk, in the emergency department the symptoms are unchanged. It is unknown whether or not the patient has had similar symptoms in the past. Historical: - Allergies: 20:56 No Known Allergies; bb - Home Meds: 20:56 albuterol sulfate 2.5 mg /3 mL (0.083 %) Inhl nebu 3 mL 4 times per day [Active]; bb atorvastatin 40 mg oral tab 1 tab once daily [Active]; Depakote Sprinkles 125 mg Oral cpSP 4 caps 2 times per day [Active]; levothyroxine 75 mcg oral tab 1 tab once daily [Active]; mirtazapine 15 mg Oral TbDL 1 tab once daily [Active]; Risperdal 0.5 mg Oral tab 1 tabs once daily [Active]; Arginaid 4.5 gram-156 mg/9.2 gram oral pwpk 1 packet daily [Active]; rivastigmine 4.6 mg/24 hr transdermal pt24 1 patch once daily [Active]; temazepam 7.5 mg Oral cap 1 cap once daily [Active]; vit C tab 500 mg daily [Active]; zinc gluconate 220 mg daily for wound healing [Active]; - PMHx: 20:56 Anxiety; Dementia; Emphysema; Hypothyroidism; COPD; bb - Immunization history:: Adult Immunizations unknown. - Social history:: Smoking status: unknown. - Family history:: not pertinent. - Ebola Screening: : No symptoms or risks identified at this time. ROS: 20:43 Unable to obtain ROS due to altered mental status, obtunded state. ric 21:00 Constitutional: Negative for fever, chills, and weight loss. ric 21:00 Constitutional: Positive for fatigue, malaise, poor PO intake, weight loss. 21:00 Respiratory: Positive for shortness of breath, at rest. 21:00 MS/extremity: Positive for swelling. 21:00 Neuro: Positive for altered mental status, weakness. Exam: 20:43 Constitutional: The patient appears frail, lethargic. ric 20:43 Cardiovascular: Rate: normal, Rhythm: regular, Pulses: Pulses are 3+ in bilateral radial, brachial, femoral, popliteal, posterior tibial and and dorsalis pedis arteries.. Heart sounds: normal, Edema: 2+ edema to level of left midcalf and right midcalf, JVD: is not appreciated. Vital Signs: 20:56 BP 89 / 61; Pulse 66; Resp 14 S; Pulse Ox 93% on R/A; Weight 43.09 kg (R); Height 5 ft. bb 6 in. (167.64 cm) (R); 21:30 BP 105 / 65; Pulse 57; Resp 14; Pulse Ox 95% on 4 lpm NC; tl2 22:10 BP 104 / 59; Pulse 58; Resp 14; Temp 87.7(C); Pulse Ox 100% on 4 lpm NC; tl2 23:00 BP 82 / 60; Pulse 52; Resp 14; Temp 87.6(C); Pulse Ox 100% on Nebulizer Mask; tl2 23:30 BP 78 / 58; Pulse 55; Resp 16; Pulse Ox 98% on 4 lpm NC; tl2 04/10 00:05 BP 86 / 53; Pulse 62; Resp 14; Temp 88.2(C); Pulse Ox 97% on 4 lpm NC; tl2 00:30 BP 89 / 52; Pulse 59; Resp 24; Pulse Ox 97% on 4 lpm NC; tl2 01:00 BP 98 / 68; Pulse 65; Resp 18; Temp 89.3(C); Pulse Ox 95% on 4 lpm NC; tl2 11/08 20:56 Body Mass Index 15.33 (43.09 kg, 167.64 cm) bb MDM: 11/08 20:36 Patient medically screened. [facility] 20:48 Data reviewed: vital signs, nurses notes, lab test result(s), EKG, radiologic studies, [facility] CT scan, plain films. 11/08 20:42 Order name: Basic Metabolic Panel; Complete Time: 22:01 [facility] 11/08 20:42 Order name: CBC with Diff; Complete Time: 22:01 [facility] 11/08 20:42 Order name: LFT's; Complete Time: 22:01 [facility] 11/08 20:42 Order name: Magnesium; Complete Time: 22:01 [facility] 11/08 20:42 Order name: NT PRO-BNP; Complete Time: 22:01 [facility] 11/08 20:42 Order name: PT-INR; Complete Time: 22:01 [facility] 11/08 20:42 Order name: Troponin (emerg Dept Use Only); Complete Time: 22:01 [facility] 11/08 20:42 Order name: Blood Culture Adult (2) [facility] 11/08 20:42 Order name: Procalcitonin; Complete Time: 22:01 [facility] 11/08 20:42 Order name: Lactate; Complete Time: 22:01 [facility] 11/08 20:42 Order name: Urine Culture [facility] 11/08 20:42 Order name: ABG; Complete Time: 22:01 [facility] 11/08 22:03 Order name: Type And Screen [facility] 11/08 22:04 Order name: Type and Screen EDTX 11/08 20:42 Order name: XRAY Chest (1 view) [facility] 11/08 20:50 Order name: CT Head Brain wo Cont [facility] 11/08 23:13 Order name: CBC with Automated Diff EDMS 11/08 23:13 Order name: CBC with Automated Diff EDMS 11/08 23:13 Order name: Comprehensive Metabolic Panel EDMS 11/08 23:13 Order name: Comprehensive Metabolic Panel EDMS 11/08 23:13 Order name: Magnesium EDMS 11/08 23:13 Order name: Magnesium EDMS 11/08 23:13 Order name: Phosphorus EDMS 11/08 23:13 Order name: Phosphorus EDMS 11/08 23:51 Order name: ABO/RH no charge EDMS 11/08 20:42 Order name: EKG; Complete Time: 20:44 [facility] 11/08 20:42 Order name: Cardiac monitoring; Complete Time: 21:00 [facility] 11/08 20:42 Order name: EKG - Nurse/Tech; Complete Time: 20:47 [facility] 11/08 20:42 Order name: IV Saline Lock; Complete Time: 20:59 [facility] 11/08 20:42 Order name: Labs collected and sent; Complete Time: 20:59 [facility] 11/08 20:42 Order name: O2 Per Protocol; Complete Time: 21:00 [facility] 11/08 20:42 Order name: O2 Sat Monitoring; Complete Time: 21:00 [facility] 11/08 20:42 Order name: Urine Dipstick-Ancillary (obtain specimen); Complete Time: 22:06 [facility] 11/08 20:42 Order name: Isbell; Complete Time: 22:05 [facility] 11/08 23:13 Order name: Heart Healthy EDMS Administered Medications: 20:59 Drug: NS 0.9% 1000 ml Route: IV; Rate: 1 bolus; Site: left wrist; tl2 22:00 Follow up: IV Status: Completed infusion; IV Intake: 1000ml tl2 21:50 Drug: Pepcid 20 mg Route: IVP; Site: right wrist; tl2 23:00 Follow up: Response: No adverse reaction tl2 22:06 Drug: Solu-CORTEF 100 mg Route: IVP; Site: right wrist; tl2 23:00 Follow up: Response: No adverse reaction tl2 22:51 Drug: Xopenex 1.25 mg Route: Inhalation; tl2 22:52 Drug: AtroVENT Aerosol 0.5 mg Route: Inhalation; tl2 23:32 Drug: NS 0.9% 1000 ml Route: IV; Rate: 1 bolus; Site: right wrist; tl2 11/09 01:00 Follow up: IV Status: Completed infusion; IV Intake: 1000ml tl2 00:16 Drug: vancoMYCIN 1 grams Route: IVPB; Infused Over: 2 hrs; Site: left wrist; tl2 02:09 Follow up: IV Status: Infusion continued upon admission tl2 Disposition: 11/08/18 20:59 Hospitalization ordered by Arcelia Kirk for Inpatient Admission. Preliminary diagnosis are Altered mental status, unspecified, Weakness, Anorexia, Bradycardia, unspecified, Hypotension, Do not resuscitate, Respiratory failure, unspecified with hypercapnia, Pneumonia due to other specified bacteria, Anemia, unspecified, Chronic obstructive pulmonary disease, unspecified, Hypothermia. - Bed requested for Telemetry/MedSurg (Inpatient). - Status is Inpatient Admission. tl2 - Condition is Serious. - Problem is new. - Symptoms are unchanged. UTI on Admission? No Signatures: Dispatcher [employer] EDMS Naomi Erazo RN RN kl Anderson, Corey, MD MD cha Ballard, Brenda, RN RN bb Knox, Taylor, RN RN tl2 Corrections: (The following items were deleted from the chart) 11/08 21:00 20:59 Hospitalization Ordered by Arcelia Kirk MD for Inpatient Admission. Preliminary ric diagnosis is Altered mental status, unspecified; Weakness; Anorexia; Bradycardia, unspecified; Hypotension; Do not resuscitate. Bed requested for Telemetry/MedSurg (Inpatient). Status is Inpatient Admission. Condition is Serious. Problem is new. Symptoms are unchanged. UTI on Admission? No. ric 22:02 21:00 11/08/2018 20:59 Hospitalization Ordered by Arcelia Kirk MD for Inpatient ric Admission. Preliminary diagnosis is Altered mental status, unspecified; Weakness; Anorexia; Bradycardia, unspecified; Hypotension; Do not resuscitate; Respiratory failure, unspecified with hypercapnia. Bed requested for Telemetry/MedSurg (Inpatient). Status is Inpatient Admission. Condition is Serious. Problem is new. Symptoms are unchanged. UTI on Admission? No. ric 22:30 22:02 11/08/2018 20:59 Hospitalization Ordered by Arcelia Kirk MD for Inpatient ric Admission. Preliminary diagnosis is Altered mental status, unspecified; Weakness; Anorexia; Bradycardia, unspecified; Hypotension; Do not resuscitate; Respiratory failure, unspecified with hypercapnia; Pneumonia due to other specified bacteria; Anemia, unspecified; Chronic obstructive pulmonary disease, unspecified. Bed requested for Telemetry/MedSurg (Inpatient). Status is Inpatient Admission. Condition is Serious. Problem is new. Symptoms are unchanged. UTI on Admission? No. ric 23:36 22:30 11/08/2018 20:59 Hospitalization Ordered by Arcelia Kirk MD for Inpatient kl Admission. Preliminary diagnosis is Altered mental status, unspecified; Weakness; Anorexia; Bradycardia, unspecified; Hypotension; Do not resuscitate; Respiratory failure, unspecified with hypercapnia; Pneumonia due to other specified bacteria; Anemia, unspecified; Chronic obstructive pulmonary disease, unspecified; Hypothermia. Bed requested for Telemetry/MedSurg (Inpatient). Status is Inpatient Admission. Condition is Serious. Problem is new. Symptoms are unchanged. UTI on Admission? No. ric 11/09 02:11 11/08 23:36 11/08/2018 20:59 Hospitalization Ordered by Arcelia Kirk MD for Inpatient tl2 Admission. Preliminary diagnosis is Altered mental status, unspecified; Weakness; Anorexia; Bradycardia, unspecified; Hypotension; Do not resuscitate; Respiratory failure, unspecified with hypercapnia; Pneumonia due to other specified bacteria; Anemia, unspecified; Chronic obstructive pulmonary disease, unspecified; Hypothermia. Bed requested for Telemetry/MedSurg (Inpatient). Status is Inpatient Admission. Condition is Serious. Problem is new. Symptoms are unchanged. UTI on Admission? No. kl
--- NOTE | 2018-11-08 21:00 | ER ---
Nurse's Notes [facility] Name: Jeancarlos Stiles Age: 78 yrs Sex: Male : 1940 Arrival Date: 11/08/2018 Time: 20:32 Bed 4 Private MD: Diagnosis: Altered mental status, unspecified;Weakness;Anorexia;Bradycardia, unspecified;Hypotension;Do not resuscitate;Respiratory failure, unspecified with hypercapnia;Pneumonia due to other specified bacteria;Anemia, unspecified;Chronic obstructive pulmonary disease, unspecified;Hypothermia Presentation: 11/08 20:35 Presenting complaint: EMS states: they were toned out to [place] for report of pt in respiratory distress on arrival pt was bradycardic in the 40s and hypotensive 70s/30s , respiratory rate was 12 pt was satting in the 90s and was responsive to pain only. Transition of care: patient was received from another setting of care (long-term care facility), [facility]. Onset of symptoms was November 05, 2018. Risk Assessment: Do you want to hurt yourself or someone else? Patient reports no desire to harm self or others. Initial Sepsis Screen: Does the patient meet any 2 criteria? Systolic BP < 90 mmHg. Altered Mental Status. Yes Does the patient have a suspected source of infection? Yes: Skin breakdown/wound If YES to both, name of provider notified: Lee Lawrence MD. Care prior to arrival: Medication(s) given: Normal saline infusion, 500 mL, Atropine 0.5 mg IV initiated. 22 GA, in the left forearm, Oxygen administered. via a non-rebreather mask. 20:35 Method Of Arrival: EMS: [facility] bb 20:35 Acuity: AUGUSTO 1 bb Historical: - Allergies: 20:56 No Known Allergies; bb - Home Meds: 20:56 albuterol sulfate 2.5 mg /3 mL (0.083 %) Inhl nebu 3 mL 4 times per day [Active]; bb atorvastatin 40 mg oral tab 1 tab once daily [Active]; Depakote Sprinkles 125 mg Oral cpSP 4 caps 2 times per day [Active]; levothyroxine 75 mcg oral tab 1 tab once daily [Active]; mirtazapine 15 mg Oral TbDL 1 tab once daily [Active]; Risperdal 0.5 mg Oral tab 1 tabs once daily [Active]; Arginaid 4.5 gram-156 mg/9.2 gram oral pwpk 1 packet daily [Active]; rivastigmine 4.6 mg/24 hr transdermal pt24 1 patch once daily [Active]; temazepam 7.5 mg Oral cap 1 cap once daily [Active]; vit C tab 500 mg daily [Active]; zinc gluconate 220 mg daily for wound healing [Active]; - PMHx: 20:56 Anxiety; Dementia; Emphysema; Hypothyroidism; COPD; bb - Immunization history:: Adult Immunizations unknown. - Social history:: Smoking status: unknown. - Family history:: not pertinent. - Ebola Screening: : No symptoms or risks identified at this time. Screenin:30 Abuse screen: Denies threats or abuse. Nutritional screening: No deficits noted. tl2 Tuberculosis screening: No symptoms or risk factors identified. Fall Risk IV access (20 points). Mental Status- Overestimates/Forgets Limitations (15 pts.). Assessment: 20:30 General: Appears emaciated, cachectic, Behavior is listless, only responsive to painful tl2 stimuli. Pain: Unable to use pain scale. Patient is unresponsive. Neuro: Level of Consciousness is listless, obtunded, Oriented to none Pupils are sluggish. Cardiovascular: Patient's skin is warm and dry. Respiratory: Airway is patent Respiratory effort is even, shallow, Respiratory pattern is regular, Breath sounds are diminished bilaterally. GI: No signs and/or symptoms were reported involving the gastrointestinal system. Parent/caregiver reports the patient having anorexia. : No signs and/or symptoms were reported regarding the genitourinary system. Derm: Skin is pink, warm \T\ dry. 21:00 Reassessment: Dr. Lawrence at bedside discussing with family about potential hospice tl2 and what treatments to avoid. Pt family consents to refraining from CPR, intubation, use of vasopressors if pt declines. Family only wants comfort measures. 22:20 Reassessment: Family at bedside, Jessica hugger blanket applied with multiple warm tl2 blankets. 23:01 Reassessment: Temp still very low, notified, will try warmed fluids. tl2 11/09 00:30 Reassessment: Patient appears in no apparent distress at this time. BP trending down, tl2 notified, will give more fluids. 01:15 Reassessment: Pt stable and ready for transport to floor. tl2 Vital Signs: 11/08 20:56 BP 89 / 61; Pulse 66; Resp 14 S; Pulse Ox 93% on R/A; Weight 43.09 kg (R); Height 5 ft. bb 6 in. (167.64 cm) (R); 21:30 BP 105 / 65; Pulse 57; Resp 14; Pulse Ox 95% on 4 lpm NC; tl2 22:10 BP 104 / 59; Pulse 58; Resp 14; Temp 87.7(C); Pulse Ox 100% on 4 lpm NC; tl2 23:00 BP 82 / 60; Pulse 52; Resp 14; Temp 87.6(C); Pulse Ox 100% on Nebulizer Mask; tl2 23:30 BP 78 / 58; Pulse 55; Resp 16; Pulse Ox 98% on 4 lpm NC; tl2 04 00:05 BP 86 / 53; Pulse 62; Resp 14; Temp 88.2(C); Pulse Ox 97% on 4 lpm NC; tl2 00:30 BP 89 / 52; Pulse 59; Resp 24; Pulse Ox 97% on 4 lpm NC; tl2 01:00 BP 98 / 68; Pulse 65; Resp 18; Temp 89.3(C); Pulse Ox 95% on 4 lpm NC; tl2 11/08 20:56 Body Mass Index 15.33 (43.09 kg, 167.64 cm) bb ED Course: 11/08 20:30 Patient has correct armband on for positive identification. Bed in low position. Call tl2 light in reach. Side rails up X2. Adult w/ patient. 20:30 No provider procedures requiring assistance completed. Inserted saline lock: 22 gauge tl2 in right wrist, using aseptic technique. Maintain EMS IV. Dressing intact. Good blood return noted. Site clean \T\ dry. Gauge \T\ site: 22 g L wrist. 20:32 Patient arrived in ED. ds1 20:32 Arm band placed on Patient placed in an exam room, on a stretcher, on oxygen, on bb campus monitor, on pulse oximetry. 20:36 Lee Lawrence MD is Attending Physician. ric 20:50 Triage completed. bb 20:58 Kaylin Cam RN is Primary Nurse. tl2 20:58 Arcelia Kirk MD is Hospitalizing Provider. [facility] 21:00 X-ray completed. Portable x-ray completed in exam room. jr1 21:01 XRAY Chest (1 view) In Process Unspecified. EDMS 21:29 CT completed. Patient tolerated procedure well. Patient moved to CT via stretcher. nj Patient moved back from CT. 21:35 CT Head Brain wo Cont In Process Unspecified. EDMS 22:10 Isbell cath inserted, using sterile technique, [address], balloon inflated, to tl2 gravity drainage, urine specimen collected. 22:24 Thermoregulation: Jessica blanket applied. tl2 11/09 01:00 Patient admitted, IV remains in place. tl2 Administered Medications: 11/08 20:59 Drug: NS 0.9% 1000 ml Route: IV; Rate: 1 bolus; Site: left wrist; tl2 22:00 Follow up: IV Status: Completed infusion; IV Intake: 1000ml tl2 21:50 Drug: Pepcid 20 mg Route: IVP; Site: right wrist; tl2 23:00 Follow up: Response: No adverse reaction tl2 22:06 Drug: Solu-CORTEF 100 mg Route: IVP; Site: right wrist; tl2 23:00 Follow up: Response: No adverse reaction tl2 22:51 Drug: Xopenex 1.25 mg Route: Inhalation; tl2 22:52 Drug: AtroVENT Aerosol 0.5 mg Route: Inhalation; tl2 23:32 Drug: NS 0.9% 1000 ml Route: IV; Rate: 1 bolus; Site: right wrist; tl2 11/09 01:00 Follow up: IV Status: Completed infusion; IV Intake: 1000ml tl2 00:16 Drug: vancoMYCIN 1 grams Route: IVPB; Infused Over: 2 hrs; Site: left wrist; tl2 02:09 Follow up: IV Status: Infusion continued upon admission tl2 Intake: 11/08 22:00 IV: 1000ml; Total: 1000ml. tl2 11/09 01:00 IV: 1000ml; Total: 2000ml. tl2 Outcome: 11/08 20:59 Decision to Hospitalize by Provider. [facility] 11/09 01:00 Admitted to Med/surg accompanied by tech, via stretcher, room 232, with oxygen, with tl2 chart, Report called to NUNU Hutchins Condition: unchanged Discharge instructions given to family, Instructed on the need for admit. 02:11 Patient left the ED. tl2 Signatures: Dispatcher [employer] Lee Meza MD MD cha Ringgold, Jennifer jr1 Rose Rodas ds1 Kamryn Roland RN RN bb Kaylin Cam RN RN tl2 Nathaniel Babin
[2018-11-08 21:02] LABS: Absolute Lymphocytes (CBC) 1.5 K/uL (0.7-4.9); Absolute Monocytes 0.8 K/uL (0.1-1.3); Absolute Neutrophil 9.6 K/uL (1.8-8.0); Basophils % 0.3 % (0-1.3); Eosinophils % 0.7 % (0-4.4); Hematocrit 27.3 % (39.6-49.0); Lymphocytes % 12.1 % (15.3-44.8); MPV 7.6 fL (7.6-11.3); Monocytes % 6.6 % (3.3-12.3); RBC Red Blood Cell Count 3.11 M/uL (4.33-5.43)
[2018-11-08 21:06] LABS: Arterial Blood Carboxyhemoglob 1.5 % (0-1.5); Blood Gas Oxyhemoglobin 90.9 % (94-97); Blood O2 Saturation 92.6 % (92-98.5)
[2018-11-08] MEDS ORDERED: NA CHLORIDE 0.9% 2,000 ML ONE (21:06)
[2018-11-08 21:08] LABS: Protime INR 1.27
[2018-11-08 21:25] LABS: ALT/SGPT 37 U/L (12-78); AST/SGOT 55 U/L (15-37); Albumin 1.3 g/dL (3.4-5.0); Alkaline Phosphatase 154 U/L (45-117); BUN Blood Urea Nitrogen 31 mg/dL (7-18); Bicarbonate 26 mmol/L (21-32); Bilirubin Direct 0.1 mg/dL (0-0.2); Bilirubin Total 0.3 mg/dL (0.2-1.0); Glucose Level 90 mg/dL (74-106); Magnesium 2.2 mg/dL (1.8-2.4); NT PRO-BNP 1337 pg/mL (<450); Potassium 3.8 mmol/L (3.5-5.1); Protein, Total 5.2 g/dL (6.4-8.2); Sodium Level 142 mmol/L (136-145); Troponin (Emerg Dept Use Only) < 0.02 ng/mL (0.0-0.045)
[2018-11-08] MEDS ORDERED: FAMOTIDINE 20 MG/2 ML VIAL IV ONE (21:58)
[2018-11-08] MEDS ORDERED: HYDROCORTISONE SUC 100 MG INJ ONE (21:58)
[2018-11-08] MEDS ORDERED: IPRATROPIUM BROM 0.5MG/2.5ML ONE (22:38)
[2018-11-08] MEDS ORDERED: LEVALBUTEROL 1.25 MG/3 ML NEB ONE (22:38)
[2018-11-08] MEDS ORDERED: ONDANSETRON 4 MG/2 ML VIAL IV PRN (23:10)
[2018-11-08] MEDS ORDERED: ACETAMINOPHEN 500 MG TAB PO PRN (23:10)
[2018-11-08] MEDS ORDERED: ALPRAZOLAM 0.25 MG TABLET PO PRN (23:10)
[2018-11-08] MEDS ORDERED: NA CHLORIDE 0.9% 1,000 ML ONE (23:17)
[2018-11-08] MEDS ORDERED: NA CHLORIDE 0.9% 100 ML IV ONE (23:33)
[2018-11-09] MEDS ORDERED: NA CHLORIDE 0.9% 50 ML IV ONE (00:01)
[2018-11-09] MEDS ORDERED: NA CHLORIDE 0.9% 250 ML ONE (00:22)
[2018-11-09] MEDS ORDERED: VANCOMYCIN 1 GM/VIAL ONE (00:22)
[2018-11-09] MEDS: NA CHLORIDE 0.9% 1,000 ML IV SCH ×3 (01:31→22:43)
[2018-11-09] MEDS: ALBUTEROL 2.5 MG/3 ML NEB SOL NEB SCH ×4 (02:00→20:00)
[2018-11-09] MEDS: IPRATROPIUM BROM 0.5MG/2.5ML NEB SCH ×4 (02:00→20:00)
[2018-11-09] MEDS ORDERED: ALBUMIN HUMAN 25% 100 ML IV ONE ×2 (02:44→04:37)
[2018-11-09] MEDS ORDERED: NA CHLORIDE 0.9% 500 ML IV ONE (05:30)
[2018-11-09 05:59] LABS: Absolute Lymphocytes (CBC) 0.6 K/uL (0.7-4.9); Absolute Monocytes 0.2 K/uL (0.1-1.3); Absolute Neutrophil 8.5 K/uL (1.8-8.0); Basophils % 0.3 % (0-1.3); Hematocrit 24.4 % (39.6-49.0); Lymphocytes % 6.7 % (15.3-44.8); MPV 7.8 fL (7.6-11.3); Monocytes % 1.7 % (3.3-12.3); RBC Red Blood Cell Count 2.81 M/uL (4.33-5.43)
[2018-11-09 06:11] LABS: ALT/SGPT 33 U/L (12-78); AST/SGOT 49 U/L (15-37); Albumin 1.9 g/dL (3.4-5.0); Alkaline Phosphatase 128 U/L (45-117); BUN Blood Urea Nitrogen 28 mg/dL (7-18); Bicarbonate 25 mmol/L (21-32); Bilirubin Total 0.3 mg/dL (0.2-1.0); Glucose Level 86 mg/dL (74-106); Magnesium 2.2 mg/dL (1.8-2.4); Phosphorus 4.2 mg/dL (2.5-4.9); Potassium 4.2 mmol/L (3.5-5.1); Sodium Level 145 mmol/L (136-145)
[2018-11-09 06:33] LABS: Thyroid Stimulating Hormone 9.09 uIU/mL (0.360-3.740)
[2018-11-09 06:34] LABS: Platelet Estimate ADEQ
[2018-11-09 06:35] LABS: Blood Morphology Comment NOT SEEN (NOT SEEN)
--- NOTE | 2018-11-09 08:00 | RAD REPORT ---
EXAM DESCRIPTION: Jesus Single View11/08/2018 9:02 pm CLINICAL HISTORY: Cough COMPARISON: September 2018 FINDINGS: [id number] opacities have developed within the left lung base. Small pleural effusi ons suspected Right lung appears clear of acute infiltrate. Lungs are hyperaerated. The heart is normal size IMPRESSION: Mild to moderate opacities within left base probably represent pneumonia
[2018-11-09] MEDS: ENOXAPARIN 40 MG/0.4 ML SQ SCH (08:18)
--- NOTE | 2018-11-09 09:01 | P.HP ---
Certification for Inpatient Patient admitted to: Inpatient With expected LOS: >2 Midnights Patient will require the following post-hospital care: None Practitioner: I am a practitioner with admitting privileges, knowledge of patient current condition, hospital course, and medical plan of care. Services: Services provided to patient in accordance with Admission requirements found in Title 42 Section 412.3 of the Code of Federal Regulations Patient History Date of Service: 11/08/18 Reason for admission: altered mental status; found unresponsive at the half-way History of Present Illness: Patient is an 78-year-old gentleman who came into the hospital with altered mental status. patient was brought in from the half-way unresponsive. Patient was hypothermic and hypotensive. Apparently patient has been severely malnourished. He is not interacting and he appears to have been ill for quite a while. The family states at this time they do not want him resuscitated. They are leaning towards comfort measures. His prognosis is very poor. Will hydrate him and place him with a Jessica Hugger. Monitor his labs closely. Hopefully his clinical condition improves. Will speak with family regarding hospice care for his advanced dementia. He appears to have a fast score of 7E- 7F. This may change with treatment but it is unlikely to change or improve to a significant level. If it does not improve significantly then we should proceed with hospice care. Allergies No Known Allergies Allergy (Unverified 09/13/18 23:53) Home Medications: Albuterol Neb [Proventil 0.083% Neb Soln] 2.5 ml IH Q6H PRN 11/09/18 Arginine/Ascorbate Sod/Amber AC [Arginaid Powder] 1 packet PO DAILY 11/09/18 Ascorbic Acid [Vitamin C*] 1 tab PO DAILY 11/09/18 Atorvastatin Calcium [Lipitor] 1 tab PO BEDTIME 11/09/18 Divalproex [Depakote Sprinkle*] 4 cap PO BID 11/09/18 Levothyroxine Sodium 1 tab PO UKHOH2ET 11/09/18 Mirtazapine [Remeron*] 1 tab PO BEDTIME 11/09/18 Rivastigmine Patch [Exelon 4.6 mg Patch*] 1 patch TD DAILY 11/09/18 Temazepam [Restoril] 1 cap PO BEDTIME 11/09/18 Zinc Gluconate [Zinc Gluconate*] 220 mg PO DAILY 11/09/18 - Past Medical/Surgical History -: Essential HTN -: Major Depressive Disorder -: Hypothyroidism -: Dementia -: Hyperlipidemia -: COPD -: Anxiety Disorder -: Dysphagia Past Surgical History: Unable to obtain - Family History Father Family History: Reviewed- Non-Contributory - Social History Smoking Status: Unknown if ever smoked Alcohol use: No CD- Drugs: No Place of Residence: [facility] Review of Systems 10-point ROS is otherwise unremarkable Physical Examination - Vital Signs Temperature: 8.2 F Blood Pressure: 88/56 Pulse: 56 Respirations: 18 Pulse Ox (%): 94 - Physical Exam General: Unresponsive HEENT: Atraumatic, PERRLA, Mucous membr. moist/pink, EOMI, Sclerae nonicteric Neck: Supple, 2+ carotid pulse no bruit, No LAD, Without JVD or thyroid abnormality Respiratory: Clear to auscultation bilaterally, Normal air movement Cardiovascular: Normal S1 S2, No murmurs Gastrointestinal: Normal bowel sounds, Soft and benign, Non-distended, No tenderness Musculoskeletal: No clubbing, No swelling, No tenderness Integumentary: No rashes, Cyanosis Neurological: Abnormal speech, Abnormal strength, Abnormal tone, Abnormal reflexes, Abnormal affect, Dementia Lymphatics: No axilla or inguinal lymphadenopathy - Studies Laboratory Data (last 24 hrs) 11/08/18 20:50: PT 14.9 H, INR 1.27 11/08/18 20:50: WBC 12.0 H D, Hgb 8.8 L, Hct 27.3 L D, Plt Count 205 D 11/08/18 20:50: Sodium 142, Potassium 3.8, BUN 31 H, Creatinine 0.83, Glucose 90 , Magnesium 2.2, Total Bilirubin 0.3, AST 55 H, ALT 37, Alkaline Phosphatase 154 H Assessment & Plan - Problems (Diagnosis) (1) Hypothermia Current Visit: Yes Status: Acute (2) Hypotension Current Visit: Yes Status: Acute (3) Unresponsive Current Visit: Yes Status: Acute (4) DNR (do not resuscitate) Current Visit: Yes Status: Acute (5) Altered mental status Onset Date: 09/14/18 Current Visit: No Status: Chronic Qualifiers: Altered mental status type: unspecified Qualified Code(s): R41.82 - Altered mental status, unspecified (6) Dementia Current Visit: No Status: Chronic Qualifiers: Dementia type: Alzheimer's disease Alzheimer's disease onset: late-onset Dementia behavioral disturbance: with behavioral disturbance Qualified Code(s) : G30.1 - Alzheimer's disease with late onset; F02.81 - Dementia in other diseases classified elsewhere with behavioral disturbance - Plan Plan: 1. IV hydration 2. Jessica Hugger 3. check thyroid studies 4. IV antibiotics 5. monitor electrolytes closely 6. discussed with family regarding hospice care as family is wanting comfort measures. 7. GI/DVT prophylaxis Discharge Plan: Home Plan to discharge in: Greater than 2 days - Advance Directives Does patient have a Living Will: No Does patient have a Durable POA for Healthcare: Yes - Code Status/Comfort Care Code Status Assessed: Yes Code Status: Full Code Critical Care: No Time Spent Managing PTS Care (In Minutes): 45
--- NOTE | 2018-11-09 10:45 | EKG ---
Test Date: 2018-11-08 Test Time: 20:32:55 [employer] Room: [facility] MEASUREMENT RESULTS: Intervals: Rate: 67 CT: 172 QRSD: 150 QT: 542 QTc: 572 Napoleon: P: 49 CT: 172 QRS: 19 T: 110 INTERPRETIVE STATEMENTS: Normal sinus rhythm Left bundle branch block Abnormal ECG Compared to ECG 09/13/2018 20:26:28 Left bundle-branch block now present Ventricular premature complex(es) no longer present Electronically Signed On 11-09-18 10:44:35 CDT by Kev Cano
--- NOTE | 2018-11-09 10:58 | RAD REPORT ---
EXAM DESCRIPTION: CT - Head Brain Wo Cont - 11/08/2018 10:10 pm CLINICAL HISTORY: 78 years Male DECLINING STATE COMPARISON: None TECHNIQUE: Images were obtained in axial, sagittal, and coronal planes. This exam was performed according to our departmental dose-optimization program which includes use of Automated Exposure Control, adjustment of the mA and/or kV according to patient size and/or use of i terative reconstruction technique. FINDINGS: Ventricular system is mildly enlarged. Moderate prominence of the cortical sulci. Moderate cerebral volume loss. No abnormal areas of increased or decreased attenuation are seen involving the brain parenchyma. No e xtra-axial fluid collections noted. No evidence for skull fracture. Symmetric aeration mastoid air cells bilaterally. Unremarkable parana rajiv sinuses. IMPRESSION: No acute intracranial abnormality. No evidence for hemorrhage, mass lesion, or large acu te infarction. Age-appropriate changes. Electronically signed by: Parris Bernal MD 11/08/2018 9:55 PM CDT Due to temporary technical issues with the PACS/Fluency reporting system, reports are being signed by the in house radiologist as a courtesy to ensure prompt reporting. The interpreting radiologist is f ully responsible for the content of the report.
--- NOTE | 2018-11-09 17:22 | P.PN ---
Subjective Date of Service: 11/09/18 Chief Complaint: altered mental status; found unresponsive at the skilled nursing Patient seen and examined at bedside. Family at bedside. Chart reviewed and case discussed with nursing staff. Review of Systems 10-point ROS is otherwise unremarkable Physical Examination - Vital Signs Temperature: 97.6 F Blood Pressure: 88/53 Pulse: 75 Respirations: 17 Pulse Ox (%): 92 - Physical Exam General: In no apparent distress, Cachectic, Demented, Confused, Other (Ill- appearing) Respiratory: Diminished Gastrointestinal: Normal bowel sounds, Soft and benign - Studies Laboratory Data (last 24 hrs) 11/08/18 20:50: PT 14.9 H, INR 1.27 11/08/18 20:50: WBC 12.0 H D, Hgb 8.8 L, Hct 27.3 L D, Plt Count 205 D 11/08/18 20:50: Sodium 142, Potassium 3.8, BUN 31 H, Creatinine 0.83, Glucose 90 , Magnesium 2.2, Total Bilirubin 0.3, AST 55 H, ALT 37, Alkaline Phosphatase 154 H Assessment And Plan - Plan Hypothermia Hypotension Unresponsive Altered mental status Dementia Patient was admitted for unresponsiveness, hypothermia. He was started on IV hydration, Jessica Hugger. He was also started on IV antibiotics. Hospice care and comfort measures were discussed with family members. Family members did decided on hospice, with [facility]. Social work was consulted. Family decided they would like to transfer patient to [place] [facility] with hospice care. Patient will likely be transferred tomorrow to [place] [facility] with hospice. Patient is currently a DNR (do not resuscitate) Discharge Plan: Shelter (With hospice) Plan to discharge in: 24 Hours
[2018-11-10] MEDS: IPRATROPIUM BROM 0.5MG/2.5ML NEB SCH ×2 (02:00→08:06)
[2018-11-10] MEDS: ALBUTEROL 2.5 MG/3 ML NEB SOL NEB SCH ×2 (02:00→08:06)
[2018-11-10] MEDS: NA CHLORIDE 0.9% 1,000 ML IV SCH (02:25)
[2018-11-10] MEDS: ENOXAPARIN 40 MG/0.4 ML SQ SCH (08:56)
--- NOTE | 2018-11-10 15:24 | P.DS ---
Admission Date: 11/09/18 Discharge Date: 11/10/18 Disposition: Reason for Admission: altered mental status; found unresponsive at the senior care Brief History of Present Illness: Patient is an 78-year-old gentleman who came into the hospital with altered mental status. patient was brought in from the senior care unresponsive. Patient was hypothermic and hypotensive. Apparently patient has been severely malnourished. He is not interacting and he appears to have been ill for quite a while. The family states at this time they do not want him resuscitated. They are leaning towards comfort measures. His prognosis is very poor. Will hydrate him and place him with a Jessica Hugger. Monitor his labs closely. Hopefully his clinical condition improves. Will speak with family regarding hospice care for his advanced dementia. He appears to have a fast score of 7E- 7F. This may change with treatment but it is unlikely to change or improve to a significant level. If it does not improve significantly then we should proceed with hospice care. Hospital Course: Hypothermia Hypotension Unresponsive Altered mental status Dementia Patient was admitted for unresponsiveness, hypothermia. He was started on IV hydration, Bear Hugger. He was also started on IV antibiotics. Hospice care and comfort measures were discussed with family members. Family members did decide on hospice, with [facility]. Social work was consulted. Family decided they would like to transfer patient to [facility] with hospice care. Patient will likely be transferred tomorrow to [facility] with hospice. Prior to being transferred to [place] with Hospice, patient did pass away here in the hospital. Patient was converted to DNR the night prior. Vital Signs/Physical Exam: Temp Pulse Resp BP Pulse Ox 97.2 F 80 16 57/29 L 0 L 11/10/18 08:00 11/10/18 08:00 11/10/18 08:00 11/10/18 08:00 11/10/18 08:00 Laboratory Data at Discharge: WBC 9.3 K/uL (4.3-10.9) D 11/09/18 05:23 Hgb 8.2 g/dL (13.6-17.9) L 11/09/18 05:23 Hct 24.4 % (39.6-49.0) L 11/09/18 05:23 Plt Count 229 K/uL (152-406) 11/09/18 05:23 PT 14.9 SECONDS (9.5-12.5) H 11/08/18 20:50 INR 1.27 11/08/18 20:50 Sodium 145 mmol/L (136-145) 11/09/18 05:23 Potassium 4.2 mmol/L (3.5-5.1) 11/09/18 05:23 BUN 28 mg/dL (7-18) H 11/09/18 05:23 Creatinine 0.74 mg/dL (0.55-1.3) 11/09/18 05:23 Glucose 86 mg/dL (74-106) 11/09/18 05:23 Phosphorus 4.2 mg/dL (2.5-4.9) 11/09/18 05:23 Magnesium 2.2 mg/dL (1.8-2.4) 11/09/18 05:23 Total Bilirubin 0.3 mg/dL (0.2-1.0) 11/09/18 05:23 AST 49 U/L (15-37) H 11/09/18 05:23 ALT 33 U/L (12-78) 11/09/18 05:23 Alkaline Phosphatase 128 U/L (45-117) H 11/09/18 05:23 Home Medications: Albuterol Neb [Proventil 0.083% Neb Soln] 2.5 ml IH Q6H PRN 11/09/18 Arginine/Ascorbate Sod/Amber AC [Arginaid Powder] 1 packet PO DAILY 11/09/18 Ascorbic Acid [Vitamin C*] 1 tab PO DAILY 11/09/18 Atorvastatin Calcium [Lipitor] 1 tab PO BEDTIME 11/09/18 Divalproex [Depakote Sprinkle*] 4 cap PO BID 11/09/18 Levothyroxine Sodium 1 tab PO [id number] 11/09/18 Mirtazapine [Remeron*] 1 tab PO BEDTIME 11/09/18 Rivastigmine Patch [Exelon 4.6 mg Patch*] 1 patch TD DAILY 11/09/18 Temazepam [Restoril] 1 cap PO BEDTIME 11/09/18 Zinc Gluconate [Zinc Gluconate*] 220 mg PO DAILY 11/09/18
== END 2018-11-10 08:30 | disposition expired | DRG 947 ==
LOC: ER 20:31 → 2ND 11-09 00:40
PROVIDERS: ADMIT Hospitalist; ATTEND Family Medicine
DX: R41.82 Altered mental status, unspecified (principal); E43 Unspecified severe protein-calorie malnutrition; F02.81 Dementia in other diseases classified elsewhere, unspecified severity, with behavioral disturbance; Z68.1 Body mass index [BMI] 19.9 or less, adult; R68.0 Hypothermia, not associated with low environmental temperature; Z51.5 Encounter for palliative care; I95.9 Hypotension, unspecified; Z66 Do not resuscitate; G30.1 Alzheimer's disease with late onset; E03.9 Hypothyroidism, unspecified; E78.5 Hyperlipidemia, unspecified; J44.9 Chronic obstructive pulmonary disease, unspecified; F41.9 Anxiety disorder, unspecified; F32.9 Major depressive disorder, single episode, unspecified; I10 Essential (primary) hypertension; Z79.51 Long term (current) use of inhaled steroids
CPT/HCPCS: 36415; 51702; 70450; 71045; 80048; 80053; 80076; 82533; 82805; 82962; 83605; 83735; 83880; 84100; 84145; 84439; 84443; 84484; 85025; 85610; 86850; 86900; 86901; 87040; 87086; 87088; 87205; 93005; 94640; 96361; 96365; 96366; 96375; 99285; J1650; J1720; J7030; P9047